=== PATIENT | female | born 1995 | race Caucasian/White ===

== ENCOUNTER 2016-07-06 22:42 | Emergency (ER) | payer BC ==
[2016-07-06] MEDS ORDERED: ONDANSETRON 4 MG TAB.RAPDIS PO ONE (23:06)
[2016-07-06] MEDS ORDERED: IBUPROFEN 800 MG TABLET PO ONE (23:06)
--- NOTE | 2016-07-06 23:06 | ER Document Report ---
ED General - General Chief Complaint: Abdominal Pain Stated Complaint: ABDOMINAL PAIN Mode of Arrival: Ambulatory Information source: Patient Notes: Patient presents to the emergency department with complaints of epigastric, left -sided abdominal pain with nausea. 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 She reports pain is now throbbing. Hurts more when she sits up. She complains of nausea denies fever vomiting diarrhea. Denies pain with void. Denies trauma. - HPI Onset: Just prior to arrival Onset/Duration: Sudden Quality of pain: Sharp, Throbbing Severity: Severe Pain Level: 4 Associated symptoms: Nausea Exacerbated by: Sitting Relieved by: Denies Similar symptoms previously: No Recently seen / treated by doctor: No - Related Data Allergies/Adverse Reactions: No Known Allergies Allergy (Unverified 07/06/16 22:50) Past Medical History - General Information source: Patient Last Menstrual Period: 06/18/16 - Social History Smoking Status: Never Smoker Cigarette use (# per day): No Frequency of alcohol use: Occasional Drug Abuse: None Occupation: [employer] Lives with: Family Family History: Other - gallbladder issues Patient has suicidal ideation: No Patient has homicidal ideation: No - Medical History Medical History: Negative Surgical Hx: Negative Review of Systems - Review of Systems Notes: Review HPI for review of systems., All other systems negative Physical Exam - Vital signs Vitals: Temp Pulse Resp BP Pulse Ox 97.9 F 80 16 144/80 H 100 07/06/16 22:49 07/06/16 22:49 07/06/16 22:49 07/06/16 22:49 07/06/16 22:49 - Notes Notes: PHYSICAL EXAMINATION: GENERAL: Well-appearing nontoxic looking HEAD: Atraumatic, normocephalic. EYES: Pupils equal round extraocular movements intact, sclera anicteric, conjunctiva are normal. ENT: nares patent, Moist mucous membranes. NECK: Normal range of motion, supple without lymphadenopathy LUNGS: CTAB and equal. No wheezes rales or rhonchi. HEART: Regular rate and rhythm without murmurs ABDOMEN: Soft, c/o epigastric tenderness. No guarding, no rebound BACK: Denies flank pain, denies back pain EXTREMITIES: Normal range of motion, NEUROLOGICAL: Cranial nerves grossly intact. Normal sensory/motor exams. PSYCH: Normal mood, normal affect. SKIN: Warm, Dry, normal turgor, no rashes or lesions noted Course - Re-evaluation Re-evalutation: 07/07/16 00:36 Ultrasound with possible aortic dissection CTA ordered. Pt updated on need for CT. patient skyping with her mother. I asked mother of any family history and mother reports just gallstones. Patient reports she's actually feeling better. 07/07/16 01:45 Patient reports she is feeling much better declines pain medication ready to home. She was instructed to fu with pcp at [facility]. The patient presents with abdominal pain without signs of peritonitis or other life threatening or serious etiology. The patient appears stable for discharge and has been instructed to return immediately if the symptoms worsen in any way or in 8-12 hours if not improved for reevaluation. The patient has been instructed to return if the symptoms worsen or change in any way. - Vital Signs Vital signs: Temp Pulse Resp BP Pulse Ox 97.9 F 86 16 124/59 L 98 07/06/16 22:49 07/07/16 01:55 07/06/16 22:49 07/07/16 01:55 07/07/16 01:55 - Laboratory Result Diagrams: 07/07/16 00:11 07/07/16 00:11 Laboratory results interpreted by me: 07/07/16 00:11 Ur Leukocyte Esterase MODERATE H Urine Ascorbic Acid 40 H - Diagnostic Test Radiology reviewed: Image reviewed, Reports reviewed - us-possible aorta disection CTA- negative for disection, PE Discharge - Discharge Clinical Impression: elevated blood pressure Abdominal pain Qualifiers: Abdominal location: epigastric Qualified Code(s): R10.13 - Epigastric pain Condition: Stable Disposition: HOME, SELF-CARE Instructions: Abdominal Pain ([facility]), Use of [id number] Ibuprofen ([facility]) Additional Instructions: *You have been evaluated for abdominal pain *Monitor your blood pressure. Your blood pressure was elevated today. This may be because you were anxious, in pain or because you need medication. It is important to follow up with your primary care provider for full evaluation. *Take ibuprofen as indicated *Follow up with a primary care provider within 5 days *Return to ED for worsening condition, changes, needs *Return to ED if not better in 24 hours Forms: Elevated Blood Pressure
[2016-07-07 00:21] LABS: ABSOLUTE BASOPHILS # (AUTO) 0.1 10^3/uL (0.0-0.2); ABSOLUTE EOSINOPHILS # (AUTO) 0.3 10^3/uL (0.0-0.6); ABSOLUTE LYMPHOCYTES (AUTO) 2.6 10^3/uL (0.5-4.7); ABSOLUTE MONOCYTES (AUTO) 0.9 10^3/uL (0.1-1.4); ABSOLUTE NEUT (AUTO) 4.5 10^3/uL (1.7-8.2); BASOPHILS % (AUTO) 1.1 % (0-2); EOSINOPHILS % (AUTO) 3.6 % (0-6); HEMATOCRIT 40.4 % (36.0-47.0); HEMOGLOBIN 13.9 g/dL (12.0-15.5); HGB HCT DIFFERENCE 1.3; LYMPHOCYTES % (AUTO) 30.7 % (13-45); MEAN CORPUSCULAR HEMOGLOBIN 29.5 pg (27.0-33.4); MEAN CORPUSCULAR HGB CONC 34.3 g/dL (32.0-36.0); MEAN CORPUSCULAR VOLUME 86 fl (80-97); MONOCYTES % (AUTO) 10.8 % (3-13); RED CELL DISTRIBUTION WIDTH 12.6 % (11.5-14.0); SEGMENTED NEUTROPHILS % (AUTO) 53.8 % (42-78); WHITE BLOOD COUNT 8.4 10^3/uL (4.0-10.5)
[2016-07-07 00:33] LABS: APPEARANCE,URINE SLIGHTLY-CLOUDY; BILIRUBIN,URINE NEGATIVE (NEGATIVE); GLUCOSE, URINE NEGATIVE (NEGATIVE); KETONES,URINE NEGATIVE (NEGATIVE); LEUKOCYTE ESTERASE,URINE MODERATE (NEGATIVE); NITRITE,URINE NEGATIVE (NEGATIVE); PROTEIN,URINE NEGATIVE (NEGATIVE); URINE SPECIFIC GRAVITY 1.025; UROBILINOGEN,URINE NEGATIVE mg/dL (<2.0)
[2016-07-07 00:35] LABS: ALANINE AMINOTRANSFERASE 35 U/L (9-52); ALBUMIN 4.4 g/dL (3.5-5.0); ALKALINE PHOSPHATASE 79 U/L (38-126); ANION GAP 13 (5-19); ASPARTATE AMINO TRANSFERASE 24 U/L (14-36); BILIRUBIN,TOTAL 0.5 mg/dL (0.2-1.3); BLOOD UREA NITROGEN 15 mg/dL (7-20); CALCIUM 9.7 mg/dL (8.4-10.2); CARBON DIOXIDE 23 mmol/L (22-30); CHLORIDE 104 mmol/L (98-107); CREATININE RESULT 0.66 mg/dL (0.52-1.25); GLUCOSE 90 mg/dL (75-110); LIPASE 122.8 U/L (23-300); POTASSIUM 4.1 mmol/L (3.6-5.0); SODIUM 139.9 mmol/L (137-145); TOTAL PROTEIN 7.1 g/dL (6.3-8.2)
[2016-07-07 02:00] VITALS: BP 124/59
== END 2016-07-07 02:04 | disposition home or self-care (01) ==
LOC: ER 22:42
DX: R10.13 Epigastric pain (principal); I10 Essential (primary) hypertension; R11.0 Nausea; Z83.79 Family history of other diseases of the digestive system
CPT/HCPCS: 99284; 36415; 83690; 84703; 85025; 80053; 81001; 76705; 71275; 74175; S0119